=== PATIENT | female | born 1935 | race African-American/Black ===

== ENCOUNTER 2016-03-01 11:01 | Emergency (ER) | payer MEDICARE, MEDICAID, BC ==
[~2016-03-01] VITALS: Ht 149.9 cm; Wt 50.8 kg
[2016-03-01 11:33] VITALS: BP 140/73
[2016-03-01] MEDS ORDERED: Acetaminophen 500mg (ES) tab PO ONE (11:45)
[2016-03-01] MEDS ORDERED: HYDRALAZINE HCL25 M1 ORAL (11:48)
[2016-03-01] MEDS ORDERED: LASIX40 MG ORAL (11:48)
[2016-03-01] MEDS ORDERED: AMLODIPINE BESY10 MG ORAL (11:48)
[2016-03-01] MEDS ORDERED: TYLENOL EXTRA500 MG ORAL (13:50)
[2016-03-01 14:12] VITALS: BP 141/62
[2016-03-01 14:13] VITALS: BP 140/73
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
--- NOTE | 2016-03-04 08:29 | Diagnostic Imaging Report ---
Indication: Back pain and trauma Technique: Continuous helical transaxial imaging of the lumbar spine was obtained from the lung bases to the pubic symphysis. No IV contrast was administered. Coronal 2-D reformats were also obtained. Study obtained in a Siemens sensation [address] Total Dose length Product (DLP): [address] Dose Index Volume (CTDIvol): 12 mGy Comparison: None Findings: There is no fracture or malalignment identified. The bones are osteopenic. Multilevel narrowing of the intervertebral discs, somewhat vacuum phenomena, associated endplate spurs and hypertrophy facets noted. Degree of degenerative disease is moderate. There is no malalignment identified. Aorta is moderately calcified. 2.7 cm well-circumscribed hypodensity noted in the left kidney. Impression: No acute injury identified. Moderate degenerative spondylosis as described above. 2.7 cm left renal hypodensity. Statistically this is most likely a cyst but evaluation is incomplete and findings are nonspecific without IV contrast administration. Atherosclerotic vascular disease. The CT scanner at [facility] is accredited by the [employer] and the scans are performed using protocols designed to limit radiation exposure to as low as reasonably achievable to attain images of sufficient resolution adequate for diagnostic evaluation.
--- NOTE | 2016-04-19 09:50 | Diagnostic Imaging Report ---
Indication: Head trauma Technique: Contiguous 5 mm thick transaxial imaging of the head obtained in a Siemens Sensation [address] scanner. Soft tissue and bone windows generated. Total Dose length Product (DLP): [address] Dose Index Volume (CTDIvol): 70.38 mGy Comparison: none Findings: There is mild prominence of the ventricles, basal cisterns, and cerebral sulci consistent with atrophy. Mild, nonspecific, white matter hypoattenuation is noted throughout the brain consistent with chronic small vessel disease. There is no midline shift, edema, acute hemorrhage, mass effect, or abnormal extra-axial fluid collections. Bones and extra osseous soft tissues are unremarkable. Impression: No acute intracranial bleed, mass effect or edema. Mild atrophy of the brain. Nonspecific white matter hypoattenuation probably due to chronic small vessel disease. The CT scanner at [facility] is accredited by the [employer] and the scans are performed using protocols designed to limit radiation exposure to as low as reasonably achievable to attain images of sufficient resolution adequate for diagnostic evaluation.
== END 2016-03-01 14:13 | disposition home or self-care (01) ==
LOC: EMR 12:40
DX: S20.229A Contusion of unspecified back wall of thorax, initial encounter (principal); S09.90XA Unspecified injury of head, initial encounter; I10 Essential (primary) hypertension; V49.9XXA Car occupant (driver) (passenger) injured in unspecified traffic accident, initial encounter; Y92.410 Unspecified street and highway as the place of occurrence of the external cause; Y99.8 Other external cause status
CPT/HCPCS: 70450; 72131; 99284